=== PATIENT | female | born 1995 | race Caucasian/White ===

== ENCOUNTER 2022-10-31 13:05 | Emergency (ER) | payer OTHER, SELFPAY ==
--- NOTE | ~2022-10-31 | XR_ITS ---
EXAMINATION: XR CHEST CLINICAL INFORMATION: Cough, shortness of breath COMPARISON: None TECHNIQUE: 2 views of the chest were obtained. FINDINGS: No significant abnormality is noted involving the heart, lungs, mediastinum, bony thorax or soft tissues. XR/XR chest 2V IMPRESSION: Unremarkable examination.
[2022-10-31 13:52] VITALS: BP 128/88; PULSE 111; RESP 20; TEMP 36.4; O2SAT 98
--- NOTE | 2022-10-31 13:52 | ED_ITS ---
HPI - URI/Sore Throat General Chief Complaint: Upper Respiratory Symptoms <LANIE Wilson - Last Filed: 10/31/22 14:00> Stated Complaint: sob <LANIE Wilson - Last Filed: 10/31/22 14:00> Time Seen by Provider: 10/31/22 15:52 <LANIE Wilson - Last Filed: 10/31/22 14:00> Source: patient <Julieth Coto NP - Last Filed: 10/31/22 16:33> Mode of arrival: ambulatory <Julieth Coto NP - Last Filed: 10/31/22 16:33> Limitations: no limitations <Julieth Coto NP - Last Filed: 10/31/22 16:33> History of Present Illness HPI Narrative: 27-year-old female with a past medical history of asthma presents to the emergency department with complaints of fever, cough, body pain, sore throat, and shortness of breath since Friday. She states she typically uses an albuterol inhaler, however; she does not have any at home and she needs a refill. She currently does not have an established provider. She denies any nausea, vomiting, headache, chills, changes in vision. <Julieth Coto NP - Last Filed: 10/31/22 16:33> MD elicited complaint: fever, cough and sore throat <Julieth Coto NP - Last Filed: 10/31/22 16:33> Onset (ago): day(s) <Julieth Coto NP - Last Filed: 10/31/22 16:33> Consistency: constant <Julieth Coto NP - Last Filed: 10/31/22 16:33> Severity: mild <Julieth Coto NP - Last Filed: 10/31/22 16:33> Description of mucous: clear <Julieth Coto NP - Last Filed: 10/31/22 16:33> Able to tolerate fluids by mouth: Yes <Julieth Coto NP - Last Filed: 10/31/22 16:33> Exacerbating factors: speaking and deep breaths <Julieth Coto NP - Last Filed: 10/31/22 16:33> Relieving factors: nothing <Julieth Coto NP - Last Filed: 10/31/22 16:33> Associated symptoms: denies other symptoms <Julieth Coto NP - Last Filed: 10/31/22 16:33> Treatments prior to arrival: none <Julieth Coto NP - Last Filed: 10/31/22 16:33> Related Data Home Medications: Previous Rx's Medication Instructions Recorded albuterol sulfate 90 mcg/actuation 2 inh inhalation Q4-6H PRN 10/31/22 breath activated powder inhaler shortness of breath #1 ea <LANIE Wilson - Last Filed: 10/31/22 14:00> Allergies/Adverse Reactions: Allergies Allergy/AdvReac Type Severity Reaction Status Date / Time ibuprofen [From Motrin] Allergy Mild hives Verified 10/31/22 13:57 <LANIE Wilson - Last Filed: 10/31/22 14:00> Review of Systems Review of Systems: In addition to documented HPI above, the additional ROS was obtained: Constitutional: No Weight loss, No Chills ENT/Mouth: No Ear Pain, No Nasal Congestion, No Sinus Pain, No Hoarseness, No Rhinorrhea, No Swallowing Difficulty Cardiovascular: No Chest Pain Respiratory: No Wheezing Gastrointestinal: No Nausea, No Vomiting, No Diarrhea, No Constipation, No Abdominal pain Genitourinary: No Dysuria, No Urinary Frequency, No Hematuria, No Urinary Incontinence/retention, No Urgency, No Flank Pain Musculoskeletal: No joint pain, No Joint Swelling Skin: No Skin Lesions, No rash Neuro: No Weakness, No Numbness, No Paresthesias <Julieth Coto NP - Last Filed: 10/31/22 16:33> Yes all other systems are reviewed and are negative <Julieth Coto NP - Last Filed: 10/31/22 16:33> [facility] Past Medical History Attestation statement: The following information was validated with the patient. <Julieth Coto NP - Last Filed: 10/31/22 16:33> Source: old records reviewed <Julieth Coto NP - Last Filed: 10/31/22 16:33> Social History Social History: Social History Advance Directives: No Advance Directives Information Provided: No <LANIE iWlson - Last Filed: 10/31/22 14:00> Physical Exam Vital Signs: Vital Signs: Last Vital Signs Temp 97.5 F 10/31/22 13:52 Pulse 111 H 10/31/22 13:52 Resp 20 10/31/22 13:52 BP 128/88 10/31/22 13:52 Pulse Ox 98 10/31/22 13:52 O2 Del Method 10/31/22 13:52 BMI result Body Mass Index 20.0 <LANIE Wilson - Last Filed: 10/31/22 14:00> Vital Signs: Last Vital Signs Temp 97.5 F 10/31/22 13:52 Pulse 111 H 10/31/22 13:52 Resp 20 10/31/22 13:52 BP 128/88 10/31/22 13:52 Pulse Ox 98 10/31/22 13:52 O2 Del Method 10/31/22 13:52 BMI result Body Mass Index 20.0 <Julieth Coto NP - Last Filed: 10/31/22 16:33> Const: General: cooperative, alert and awake <Julieth Coto NP - Last Filed: 10/31/22 16:33> Nutritional Appearance: average body habitus <Julieth Coto NP - Last Filed: 10/31/22 16:33> Orientation/consciousness: patient oriented x3 <Julieth Coto NP - Last Filed: 10/31/22 16:33> Limitations: no limitations <Julieth Coto NP - Last Filed: 10/31/22 16:33> HEENT: Head: Yes normal to inspection, Yes normocephalic and Yes atraumatic <Julieth Coto NP - Last Filed: 10/31/22 16:33> Ears: hearing grossly normal bilaterally and external ears normal <Julieth Coto NP - Last Filed: 10/31/22 16:33> General nose exam: Normal external nose present <Julieth Coto NP - Last Filed: 10/31/22 16:33> Face and sinus: Yes normal facial exam and Yes face symmetric <Julieth Coto MANAGER USER INTERFACE - Last Filed: 10/31/22 16:33> Mouth: Normal oral and palatal mucosa present <Julieth Coto, MANAGER USER INTERFACE - Last Filed: 10/31/22 16:33> Eyes: General: appearance normal, both eyes and all related structures <Julieth Coto, MANAGER USER INTERFACE - Last Filed: 10/31/22 16:33> Visual Mobley: normal visual mobley by confrontation <Julieth Coto, MANAGER USER INTERFACE - Last Filed: 10/31/22 16:33> Alignment and Position: alignment normal <Julieth Coto, MANAGER USER INTERFACE - Last Filed: 10/31/22 16:33> Periorbital: periorbital findings normal <Julieth Coto, MANAGER USER INTERFACE - Last Filed: 10/31/22 16:33> Eyelids: Yes eyelids normal <Julieth Coto, MANAGER USER INTERFACE - Last Filed: 10/31/22 16:33> Conjunctivae: conjunctivae normal <Julieth Coto, MANAGER USER INTERFACE - Last Filed: 10/31/22 16:33> Sclerae: sclerae normal <Julieth Coto, MANAGER USER INTERFACE - Last Filed: 10/31/22 16:33> Corneas: corneas normal <Julieth Coto, MANAGER USER INTERFACE - Last Filed: 10/31/22 16:33> Pupils: Equal, round and reactive pupils present <Julieth Coto MANAGER USER INTERFACE - Last Filed: 10/31/22 16:33> EOM: EOMs intact bilaterally <Julieth Coto, MANAGER USER INTERFACE - Last Filed: 10/31/22 16:33> Neck: Neck: Yes normal visual inspection, Yes full ROM and Yes no lymphadenopathy <Julieth Coto, MANAGER USER INTERFACE - Last Filed: 10/31/22 16:33> Chest: Chest palpation & inspection: normal inspection of the chest <Julieth Coto MANAGER USER INTERFACE - Last Filed: 10/31/22 16:33> Resp: Effort & Inspection: normal respiratory effort, Actively coughing and not labored <Julieth Coto, MANAGER USER INTERFACE - Last Filed: 10/31/22 16:33> Auscultation: clear to auscultation bilaterally, no crackles, no rhonchi and no wheezes <Julieth Nnamdi, MANAGER USER INTERFACE - Last Filed: 10/31/22 16:33> Cardio: Rate: regular rate <Julieth Nnamdi, MANAGER USER INTERFACE - Last Filed: 10/31/22 16:33> Rhythm: regular rhythm <Julieth Nnamdi, MANAGER USER INTERFACE - Last Filed: 10/31/22 16:33> Back/Spine/Pelvis: Cervical Spine: cervical ROM normal <Julieth Pluctodd, MANAGER USER INTERFACE - Last Filed: 10/31/22 16:33> Thoracic/Lumbar Spine: thoraco-lumbar ROM normal <Julieth Pluctodd, MANAGER USER INTERFACE - Last Filed: 10/31/22 16:33> Skin: General skin exam: no rashes or lesions noted <Julieth Nnamdi, MANAGER USER INTERFACE - Last Filed: 10/31/22 16:33> Neuro: General: patient oriented x3 and tone normal <Julieth Nnamdi, MANAGER USER INTERFACE - Last Filed: 10/31/22 16:33> Cranial nerves: Yes Equal, round and reactive pupils present and Yes Bilaterally intact EOM present <Julieth Nnamdi, MANAGER USER INTERFACE - Last Filed: 10/31/22 16:33> Cognition (Neuro): normal cognition <Julieth Nnamdi, MANAGER USER INTERFACE - Last Filed: 10/31/22 16:33> Gait exam (Neuro): Normal gait present <Julieth Nnamdi, MANAGER USER INTERFACE - Last Filed: 10/31/22 16:33> Motor exam (neuro): 5/5 motor strength present throughout <Julieth Plsky, MANAGER USER INTERFACE - Last Filed: 10/31/22 16:33> Extrem: General: Yes normal to inspection, Yes full ROM and Yes capillary refill normal <Julieth Plsky, MANAGER USER INTERFACE - Last Filed: 10/31/22 16:33> Psych: Appearance: grossly normal <Julieth Pluctodd, MANAGER USER INTERFACE - Last Filed: 10/31/22 16:33> Mental Status: mental status grossly normal <Julieth Pluciennik, MANAGER USER INTERFACE - Last Filed: 10/31/22 16:33> Speech and movement: Normal speech and movement present <Julieth Coto NP - Last Filed: 10/31/22 16:33> Affect: normal affect <Julieth Coto NP - Last Filed: 10/31/22 16:33> Attitude: cooperative <Julieth Coto NP - Last Filed: 10/31/22 16:33> Thought process: Normal thought process present <Julieth Coto NP - Last Filed: 10/31/22 16:33> Thought content: Normal thought content present <Julieth Coto NP - Last Filed: 10/31/22 16:33> Course Course Course Narrative: RME-14pm - 27yoF presenting to the ED c c/o fevers, chills, fatigue, malaise, sore throat, nasal congestion/rhinorrhea, cough with shortness of breath with wheezing since Friday worse today. Son had similar symptoms 1 week of although his symptoms are improving he was diagnosed with influenza. She denies any other sick contacts or recent travel. Or any other symptoms complaints or concerns at this time. Plan: Chest x-ray, strep and COVID RSV flu swab ordered at this time patient is stable she will be sent back to the waiting room for further evaluation treatment emergency minor care. <LANIE Wilson - Last Filed: 10/31/22 14:00> Medical Decision Making Medical Decision Making MDM Narrative: 27-year-old female with a past medical history of asthma presents to the emergency department with complaints of fever, cough, body pain, sore throat, and shortness of breath since Friday. Serology positive for influenza a, n egative for influenza B, RSV, COVID-19. Albuterol inhaler given in the emergency department as patient is short of breath and has a history of asthma with plan to discharge patient with a prescription for albuterol inhalers. Patient does not look hypoxic or toxic. Chest x-ray with no evidence of acute cardiopulmonary disease. Speaking in full sentences without distress. Patient is safe for discharge with symptom management. HPI, PE, diagnostics, and plan discussed with patient with no unanswered questions at this time. Educated to manage symptoms with over the counter Tylenol and/or Motrin and [id number] cold medications with dosing as per packaging. Educated to return to the emergency department with increasing shortness of breath, chest pain, headache with vision changes, worsening discomfort, or any other emergent concerning symptoms. Recommended follow-up with the primary care provider for further treatment and management. <Julieth Coto NP - Last Filed: 10/31/22 16:33> Differential Diagnosis Differential Diagnoses: The differential diagnosis associated with the presentation includes <Julieth Coto NP - Last Filed: 10/31/22 16:33> Influenza a <Julieth Coto NP - Last Filed: 10/31/22 16:33> Lab Data Labs: Lab Results 10/31/22 10/31/22 Range/Units 13:59 14:00 Influenza Type A (PCR) POSITIVE A (Negative) Influenza Type B (PCR) NEGATIVE (Negative) RSV RNA Qual (PCR) NEGATIVE (Negative) SARS-CoV-2 RNA (RT-PCR) NEGATIVE (Negative) S. pyogenes GrpA KATHERINE Negative (Negative) <LANIE Wilson - Last Filed: 10/31/22 14:00> Lab Results 10/31/22 10/31/22 Range/Units 13:59 14:00 Influenza Type A (PCR) POSITIVE A (Negative) Influenza Type B (PCR) NEGATIVE (Negative) RSV RNA Qual (PCR) NEGATIVE (Negative) SARS-CoV-2 RNA (RT-PCR) NEGATIVE (Negative) S. pyogenes GrpA KATHERINE Negative (Negative) <Julieth Coto NP - Last Filed: 10/31/22 16:33> Discharge Plan Discharge Clinical Impression: Influenza A <LANIE Wilson - Last Filed: 10/31/22 14:00> Patient Disposition: Home, Self-Care <LANIE Wilson - Last Filed: 10/31/22 14:00> Instructions: Albuterol (By breathing), Influenza (ED), Droplet Precautions (ED) <LANIE Wilson - Last Filed: 10/31/22 14:00> Additional Instructions: You are positive for influenza A. This is a viral infection that has to run its course. There are no antibiotics needed at this time. A prescription for an albuterol inhaler has been sent to preferred pharmacy. Please use as directed. It is recommended that you manage your symptoms with over the counter Tylenol and/or Motrin and [id number] cold medications with dosing as per packaging. Please return to the emergency department with increasing shortness of breath, chest pain, headache with vision changes, worsening discomfort, fever despite taking Tylenol and/or Motrin, or any other emergent concerning symptoms. Recommended that you follow-up with your primary care provider for further treatment and management. <LANIE Wilson - Last Filed: 10/31/22 14:00> Prescriptions: New albuterol sulfate 90 mcg/actuation aerosol powdr breath activated 2 inh inhalation Q4-6H PRN (Reason: shortness of breath) Qty: 1 0RF <LANIE Wilson - Last Filed: 10/31/22 14:00> Referrals: [facility] [place] [facility] [place]Provider Group] [facility] [place] [facility]Provider Group] [facility] [place] [facility] [Provider Group] <LANIE Wilson - Last Filed: 10/31/22 14:00> Stand Alone Forms: Work/School Release <LANIE Wilson - Last Filed: 10/31/22 14:00> Print Language: [place] <LANIE Wilson - Last Filed: 10/31/22 14:00>
[2022-10-31 14:28] LABS: Strep A Nucleic Acid Negative (Negative)
[2022-10-31 14:54] LABS: Influenza A PCR POSITIVE (Negative); Influenza B PCR NEGATIVE (Negative); Resp Syncy Virus RNA Qual PCR NEGATIVE (Negative); SARS COV2 PCR INHOUSE NEGATIVE (Negative)
[2022-10-31] MEDS: Albuterol Sulfate 90 MCG 8 GM INHALER 2 PUFF INHALE (16:54)
[2022-10-31 16:56] VITALS: PULSE 111; RESP 20; O2SAT 98
== END 2022-10-31 17:06 | disposition home or self-care (01) ==
PROVIDERS: Physician Assistant Medical; Emergency Provider Student in an Organized Health Care Education/Training Program
DX: J10.1 Influenza due to other identified influenza virus with other respiratory manifestations (principal); R50.9 Fever, unspecified; M79.10 Myalgia, unspecified site; R05.9 Cough, unspecified; Z20.822 Contact with and (suspected) exposure to COVID-19
CPT/HCPCS: 0241U; 71046; 87651; 94640; 99283; 99284